=== PATIENT | female | born 1970 | race Hispanic/Latino ===

== ENCOUNTER 2018-09-16 13:09 | Emergency (ER) | payer OTHER ==
--- NOTE | 2018-09-16 15:07 | ED PDOC ---
HPI: Female Pain Time Seen by Provider: 09/16/18 13:53 Chief Complaint (Nursing): Female Genitourinary Chief Complaint (Provider): vaginal bleeding History Per: Patient History/Exam Limitations: no limitations Onset/Duration Of Symptoms: Days (16 days) Current Symptoms Are (Timing): Still Present Associated Symptoms: Other (dizziness today) Additional Complaint(s): Pt. is a 47 y/o healthy female who reports 16 days of vaginal bleeding. Pt. reports her menses started 16d. ago, usually lasts 5 days but she has been bleeding daily since onset, she reports increased bleeding with clots 5 d. ago but bleeding seems to have decreased as of today. Pt. saw her insurance agent Dr. Selene Duran in [facility], 2d. ago and was started on provera (10mg daily) which she has taken x 2 days and she had an oupt. pelvic US done yesterday, was onofficially told it was normal. Pt. also saw her PMD 5 d. ago, had outpt. cbc with hgb 10.5 and was started on Fe supplements (initially every other day but her insurance agent increased it to daily starting 2d. ago). Pt. reports while at work today she felt lightheaded and was worried she may becoming more anemic, pt. now feeling well. Abnormal Vaginal Bleeding: Yes Last Menstral Period: 08/30/18 Past Medical History Reviewed: Historical Data, Nursing Documentation, Vital Signs Vital Signs: Last Vital Signs Temp 98.5 F 09/16/18 13:41 Pulse 82 09/16/18 13:41 Resp 18 09/16/18 13:41 BP 169/95 H 09/16/18 13:41 Pulse Ox 99 09/16/18 13:41 - Medical History PMH: No Chronic Diseases - Family History Family History: States: No Known Family Hx - Home Medications Home Medications: Ambulatory Orders Medication Instructions Recorded MedroxyPROGESTERone [Provera] 20 mg PO DAILY 5 Days #5 tab 09/16/18 - Allergies Allergies/Adverse Reactions: Allergies Allergy/AdvReac Type Severity Reaction Status Date / Time No Known Allergies Allergy Verified 09/16/18 14:38 Review of Systems ROS Statement: Except As Marked, All Systems Reviewed And Found Negative Physical Exam - Reviewed Nursing Documentation Reviewed: Yes Vital Signs Reviewed: Yes - Physical Exam Appears: Positive for: Well, No Acute Distress Skin: Positive for: Normal Color Cardiovascular/Chest: Positive for: Regular Rate, Rhythm Respiratory: Positive for: Normal Breath Sounds Pelvic Exam: Positive for: External Exam Normal, Bimanual Exam Normal, No Cerv. Motion Tender, No Masses, Active Bleeding (Mild-Moderate bleeding) - Laboratory Results Result Diagrams: 09/16/18 15:07 09/16/18 15:07 Urine POC: Negative - ECG ECG Rhythm: Positive for: Normal QRS, Sinus Rhythm (at 70 bpm). Negative for: ST/T Changes O2 Sat by Pulse Oximetry: 99 Medical Decision Making Medical Decision Making: IV access established, labs sent. Pt. resting comfortably. Repeat bp 145/84, hr 82. Pt. ambulating with steady gait, no dizziness. Case d/w Dr. Burgos, who evaluated pt. at bedside, recommends increasing provera to 20mg daily x 5 days, then pt. will finish the remainder of her 10mg rx. Pt. comfortable with plan, will f/u with her insurance agent or Dr. Burgos for further eval, including endometrial bx. Disposition - Clinical Impression Clinical Impression: Dysfunctional uterine bleeding - Patient ED Disposition Is Patient to be Admitted: No Discussed With : Roula Burogs Counseled Patient/Family Regarding: Studies Performed, Diagnosis, Need For Followup, Rx Given - Disposition Referrals: Roula Burgos MD [Staff Provider] - Disposition: Routine/Home Disposition Time: 17:46 Condition: STABLE Prescriptions: MedroxyPROGESTERone [Provera] 20 mg PO DAILY 5 Days #5 tab Instructions: Heavy Periods (DC) Forms: [employer] (Belarusian)
[2018-09-16 15:15] LABS: BASO # 0.1 K/uL (0.0-0.2); BASO % 0.6 % (0.0-2.0); EOS % 0.4 % (0.0-4.0); HEMOGLOBIN 9.5 g/dL (12.0-16.0); LYMPH # 1.8 K/uL (1.0-4.3); LYMPH % 18.6 % (20.0-40.0); MEAN CELL VOLUME 87.8 fl (81.0-99.0); MEAN CORPUSCULAR HEMOGLOBIN 28.5 pg (27.0-31.0); MEAN CORPUSCULAR HGB CONC 32.4 g/dL (33.0-37.0); MONO # 0.3 K/uL (0.0-0.8); MONO % 3.6 % (0.0-10.0); NEUT # 7.3 K/uL (1.8-7.0); NEUT % 76.8 % (50.0-75.0); NRBC % 0.1 % (0.0-0.0); RBC 3.32 Mil/uL (3.80-5.20); WHITE BLOOD COUNT 9.6 K/uL (4.8-10.8)
[2018-09-16 15:36] LABS: ALB/GLOB RATIO 1.3 (1.0-2.1); ALBUMIN 4.3 g/dL (3.5-5.0); ALT/SGPT 21 U/L (9-52); AST/SGOT 19 U/L (14-36); BLOOD UREA NITROGEN 12 mg/dl (7-17); CALCIUM 8.7 mg/dL (8.4-10.2); GFR NON-AFRICAN AMERICAN > 60
--- NOTE | 2018-09-16 19:21 | CARD ---
APPROVED REPORT Date of service: 09/16/2018 EKG Measurement Heart [id number] <Conclusion> Normal sinus rhythm Normal ECG
[2018-09-16 19:23] VITALS: BP 140/68; PULSE 75; RESP 17; TEMP 97.8; O2SAT 100
--- NOTE | 2018-09-16 19:43 | CP.PCM.CON ---
History of Present Illness - History of Present Illness History of Present Illness: Patient is a 47 yo female with 3 wks of abnormal uterine bleeding. Patient reported she has been having normal monthly periods, since 08/30 has had heavy constant bleeding. Patient was seen as outpatient by her primary OBGYN, had U/S which was nml and Hgb = 10.5. Patient presented today to ER because she felt dizzy and the bleeding had not really stopped despite being started on Provera 10mg PO daily for past 2 days. Patient now on exam denies dizziness, SOB, CP, no N/V, no abdominal pain, mild vaginal bleeding, no LINDO or other complaints Review of Systems - Review of Systems Systems not reviewed;Unavailable: Acuity of Condition - Constitutional Constitutional: As Per HPI - Breasts Breasts: As Per HPI - Cardiovascular Cardiovascular: As Per HPI - Respiratory Respiratory: As Per HPI - Gastrointestinal Gastrointestinal: As Per HPI - Genitourinary Genitourinary: As Per HPI - Reproductive: Female Reproductive:Female: Heavy Menses, Abnormal Vaginal Bleeding Past Patient History - Past Social History Smoking Status: Unknown If Ever Smoked - PSYCHIATRIC Hx Substance Use: No Meds Home Medications: Home Medication List Medication Instructions Recorded Confirmed Type MedroxyPROGESTERone [Provera] 20 mg PO DAILY 5 Days #5 tab 09/16/18 Rx Allergies/Adverse Reactions: Allergies Allergy/AdvReac Type Severity Reaction Status Date / Time No Known Allergies Allergy Verified 09/16/18 14:38 Physical Exam - Head Exam Head Exam: ATRAUMATIC - Eye Exam Eye Exam: PERRL Pupil Exam: NORMAL ACCOMODATION - ENT Exam ENT Exam: Normal Exam - Respiratory Exam Respiratory Exam: NORMAL BREATHING PATTERN - Cardiovascular Exam Cardiovascular Exam: REGULAR RHYTHM - GI/Abdominal Exam GI & Abdominal Exam: Normal Bowel Sounds - Rectal Exam Rectal Exam: NORMAL INSPECTION - Exam Bimanual exam: NORMAL BIMANUAL EXAM - Extremities Exam Extremities exam: Positive for: normal inspection - Neurological Exam Neurological exam: Oriented x3 Results - Vital Signs Recent Vital Signs: Last Vital Signs Temp 97.8 F 09/16/18 17:50 Pulse 75 09/16/18 17:50 Resp 17 09/16/18 17:50 BP 140/68 09/16/18 17:50 Pulse Ox 100 09/16/18 17:50 - Labs Result Diagrams: 09/16/18 15:07 09/16/18 15:07 Labs: Laboratory Results - last 24 hr 09/16/18 09/16/18 15:07 15:07 WBC 9.6 RBC 3.32 L Hgb 9.5 L Hct 29.2 L MCV 87.8 MCH 28.5 MCHC 32.4 L RDW 14.0 Plt Count 362 MPV 8.0 Neut % (Auto) 76.8 H Lymph % (Auto) 18.6 L [place] % (Auto) 3.6 Eos % (Auto) 0.4 Baso % (Auto) 0.6 Neut # (Auto) 7.3 H Lymph # (Auto) 1.8 [place] # (Auto) 0.3 Eos # (Auto) 0.0 Baso # (Auto) 0.1 Sodium 138 Potassium 4.2 Chloride 105 Carbon Dioxide 26 Anion Gap 11 BUN 12 Creatinine 0.7 Est GFR ( Amer) > 60 Est GFR (Non-Af Amer) > 60 Random Glucose 93 Calcium 8.7 Total Bilirubin 0.2 AST 19 ALT 21 Alkaline Phosphatase 38 Total Protein 7.5 Albumin 4.3 Globulin 3.2 Albumin/Globulin Ratio 1.3 Assessment & Plan - Assessment and Plan (Free Text) Assessment: A/P 1. Patient evaluated and is stable. Patient's Hgb = 9.5, VSS and patient is asymptomatic 2. patient most likely having irregular bleeding due to annovulation secondary to perimenopause. Patient has not other comorbidities. As per patient U/S done as outpatient was normal. Progesterone is appropriate treatment - will increased to Provera 200mg PO q 5 days. Patient advised to follow up with OBGYN as outpatient and to have EMB as outpatient 3. Otherwise pt stable for discharge. Consult appreciated - Date & Time Date: 09/16/18 Time: 19:43
== END 2018-09-16 17:50 | disposition home or self-care (01) ==
LOC: H.ER 13:09
DX: N93.8 Other specified abnormal uterine and vaginal bleeding (principal)